=== PATIENT | female | born 1955 | race Caucasian/White ===

== ENCOUNTER 2016-07-27 23:10 | Emergency (ER) | payer OTHER ==
[2016-07-27 23:37] VITALS: BP 141/70
[2016-07-27] MEDS ORDERED: ULTRAM PO ONE (23:49)
--- NOTE | 2016-07-27 23:54 | PROVIDER DOCUMENTATION ---
HPI-General Adult - General Chief Complaint: Extremity Pain Stated Complaint: CORN ON FOOT Time Seen by Provider: 07/27/16 23:43 Source: patient Allergies/Adverse Reactions: Patient Allergies Allergy/AdvReac Type Severity Reaction Status Date / Time No Known Allergies Allergy Verified 07/27/16 23:38 Home Medications: Home Medication List Medication Instructions Recorded Confirmed Last Taken Type Amitriptyline [Elavil] 100 mg PO DIRECTED 05/21/14 01/26/15 01/26/15 History Aspirin/Calcium Carbonate/Mag 81 mg PO DAILY 05/21/14 01/26/15 01/26/15 History [Aspirin Buffered 325 mg Tab] Azathioprine [Imuran] 50 mg PO HS 05/21/14 01/26/15 1 Day Ago History Clonazepam 1 mg PO TID 05/21/14 01/26/15 01/26/15 History Folic Acid 1 mg PO DAILY 05/21/14 01/26/15 01/26/15 History Prednisone 5 mg PO DAILY 05/21/14 01/26/15 01/26/15 History Tacrolimus [Prograf] 3 cap PO QAM 05/21/14 01/26/15 01/26/15 History Tacrolimus [Prograf] 3 cap PO QPM 05/21/14 01/26/15 1 Day Ago History Insulin Glargine,Hum.rec.anlog 10 unit SUBQ HS 05/22/14 01/26/15 01/26/15 History [Lantus Solostar] Amlodipine Besylate [Norvasc] 5 mg PO DAILY 07/02/14 01/26/15 01/26/15 History Calcium Carbonate/Vitamin D3 BID 07/02/14 01/26/15 01/26/15 History [Calcium + Vitamin D Tablet] Carvedilol [Coreg] 6.25 mg PO BID 07/02/14 01/26/15 01/26/15 History Insulin Aspart [Novolog Flexpen] SQ TID 07/02/14 01/26/15 01/26/15 History Magnesium Oxide [Magnesium] 400 mg pe PO BID 07/02/14 01/26/15 01/26/15 History Multivitamin [Multi Vitamin Daily] 07/02/14 01/26/15 01/26/15 History Omeprazole 20 mg PO DAILY 07/02/14 01/26/15 01/26/15 History Tramadol [Ultram] 50 mg PO Q8HR #12 tablet 07/27/16 Unknown Rx - History of Present Illness -Gen Adult Nature of Presenting Problems: Pt. is 60 yof that presents with c/o a corn on her right lateral foot. Pt. is unsure of how long it has been there because she was taking pain medications for some dental work and didn't realize it was there but when she stopped taking the pain medication the foot began to hurt. Pt. was seen at [facility] for the same. Location of Pain/Injury: reports: feet (Right). denies: head, face, mouth, neck , chest, upper extremity, hand(s), abdomen, back, pelvis, genitalia, lower extremity, upper body, lower body, generalized Pain Radiation: reports: no radiation Quality of Pain: reports: aching. denies: burning, cramping, dull, fullness, indigestion, pressure, sharp, stabbing, tearing, throbbing, tightness Severity: reports: moderate. denies: mild, severe Onset/Duration: reports: unsure, gradual Timing: reports: still present. denies: improving, gone now, resolved prior to arrival, intermittent, constant, changing over time, getting worse Context/Activities at Onset: reports: none. denies: recent emotional stress, recent physical stress, recent trauma history, possible bad food, cold exposure , out of country travel Modifying Factors: improves with: nothing Associated Symptoms: reports: trouble walking. denies: anxiety, arm pain, back/ neck pain, chest pain, constipation, cough, diaphoresis, diarrhea, dizziness, EENT symptoms, fatigue, fever/chills, genitourinary problems, headaches, heartburn, joint pain, loss of appetite, malaise, muscle aches, sinus congestion /drainage, nausea, rash, seizure, shortness of breath, sensory/motor loss, pain with inspiration, swelling/mass in abdomen, syncope, vomiting, weakness Similar Symptoms Previously?: Yes Recently seen or treated by another doctor?: Yes Review of Systems - Adult - REVIEW OF SYSTEMS - ADULT Constitutional: reports: see HPI. denies: chills, fever, fatique Eyes: reports: see HPI. denies: discharge, blurred vision, double vision Ears, Nose, Mouth & Throat: reports: see HPI. denies: ear pain, hearing loss, sinus problem, nose pain, loose teeth, mouth/dental pain, throat pain, throat swelling Cardiovascular: reports: see HPI. denies: chest pain, irregular heart rate, orthopnea, palpitations, syncope Respiratory: reports: see HPI. denies: chronic cough, cough, dyspnea on exertion, pleurisy, shortness of breath, wheezing Gastrointestinal: reports: see HPI. denies: abdominal pain, hematemesis, difficulty swallowing, frequent heartburn, nausea, vomiting Genitourinary: reports: see HPI. denies: dysuria, discharge, frequent UTI's, hematuria, hesitency, urgency Musculoskeletal: reports: see HPI. denies: bone pain, back pain, joint pain, joint swelling, muscle aches, neck pain Integumentary: reports: see HPI, skin thickening (Hays on right foot). denies: hives, itching, rash, skin sores/ulcer, other Neurological: reports: see HPI. denies: ataxia, headache/migraines, numbness, seizure, tremors Psychiatric: reports: see HPI. denies: anxiety, depression, emotional problems , insomnia, panic attacks, suicidal thoughts Past History - Adult - PAST MEDICAL HISTORY-ADULT Review of Records: reports: Old Records Reviewed, Nursing Assessment Review, Medications Reviewed, Social history reviewed & non-contributory. Major Childhood Illnesses: reports: denies history Cardiovascular: reports: cardiac disease, HTN, hyperlipidemia Respiratory: reports: other (Bilateral lung transplant ) Endocrine/Immune: reports: Diabetes, thyroid disorder Other Conditions: reports: denies history - PRIOR SURGERIES/PROCEDURES Surgical/Procedure History: reports: hysterectomy, other (double lung transplant ) - IMMUNIZATION STATUS Childhood Immunizations: See Nurse Assessment Flu Vaccine: See Nurse Assessment - FAMILY HISTORY Family History: reviewed, not pertinent - SOCIAL HISTORY Smoking: quit greater than 1 year, cigarettes Physical Exam-General - PHYSICAL EXAM-ADULT Initial Vital Signs Reviewed: Yes - CONSTITUTIONAL General Appearance: alert, mild distress, thin. negative: anxious, lethargic, slow to respond, obtunded, combative - EYES Eyes: PERRL/EOMI, pink conjunctivae. negative: scleral icterus, subconjunctival hemorrhage - HEAD, EARS, NOSE, MOUTH & THROAT HENMT: normocephalic/atraumatic, moist mucous membranes, normal ENT inspection. negative: angioedema, frontal tenderness, maxillary tenderness - NECK Neck: non-tender, full range of motion, supple, normal inspection. negative: lymphadenopathy, trachial deviation, thyromegaly - RESPIRATORY Respiratory: lungs clear, normal breath sounds. negative: crackles, rales, rhonchi, stridor, wheezing - CARDIOVASCULAR Cardiovascular: normal peripheral pulses, regular rate, rhythm, no edema, no JVD , no murmur. negative: extra beats, friction rub, irregularly irregular - CHEST (BREASTS) Chest/Breast: deferred - GASTROINTESTINAL (ABDOMEN) Abdominal Exam: normal bowel sounds, non tender, soft. negative: distended, guarding, rigid, rebound, tenderness, hernia, mass - GENITOURINARY Female Genitalia/Pelvic Exam: deferred Rectal Exam: deferred Hemoccult Exam: deferred - LYMPHATIC Lymphatic: no adenopathy. negative: axilla node tender, cervical node tenderness - MUSCULOSKELETAL Back Exam: normal inspection, no CVA tenderness, no vertebral tenderness. negative: ecchymosis, swelling, vertebral tenderness Extremity: normal range of motion, non-tender, normal gait, normal inspection. negative: deformity, erythema, inflammation, swelling, tenderness Peripheral Pulses: radial (R): 2+, radial (L): 2+ - SKIN Integumentary: normal color, normal turgor, warm/dry, tenderness (Right lateral foot). negative: cyanosis, diaphoresis, ecchymosis, erythema, jaundice, mottled , pallor, petechiae, purpura, rash, swelling - NEUROLOGIC Neurologic: grossly normal, no motor/sensory deficits. negative: aphasia, facial droop, focal weakness, motor weakness, sensory deficit - PSYCHIATRIC Psych/Mental Status: normal mood/affect, normal thought content, normal thought process, oriented x 3. negative: anxious, paranoid, tearful Progress - PLAN OF CARE/RESULTS Progress/Plan/Lab Results: Discussed plan of care with patient. Patient agrees with plan and verbalizes understanding. Vital Signs Temp Pulse Resp BP Pulse Ox 07/27/16 23:32 97.2 F L 85 20 141/70 98 No Known Allergies Allergy (Verified 07/27/16 23:38) Amitriptyline [Elavil] 100 mg PO DIRECTED 05/21/14 Aspirin/Calcium Carbonate/Mag [Aspirin Buffered 325 mg Tab] 81 mg PO DAILY 05/21 Azathioprine [Imuran] 50 mg PO HS 05/21/14 Clonazepam 1 mg PO TID 05/21/14 Folic Acid 1 mg PO DAILY 05/21/14 Prednisone 5 mg PO DAILY 05/21/14 Tacrolimus [Prograf] 3 cap PO QAM 05/21/14 Tacrolimus [Prograf] 3 cap PO QPM 05/21/14 Insulin Glargine,Hum.rec.anlog [Lantus Solostar] 10 unit SUBQ HS 05/22/14 Amlodipine Besylate [Norvasc] 5 mg PO DAILY 07/02/14 Calcium Carbonate/Vitamin D3 [Calcium + Vitamin D Tablet] BID 07/02/14 Carvedilol [Coreg] 6.25 mg PO BID 07/02/14 Insulin Aspart [Novolog Flexpen] SQ TID 07/02/14 Magnesium Oxide [Magnesium] 400 mg pe PO BID 07/02/14 Multivitamin [Multi Vitamin Daily] 07/02/14 Omeprazole 20 mg PO DAILY 07/02/14 Orders Category Date Time Status Wound Care DIRECTED Care 07/27/16 23:49 Active Tramadol [Ultram] Med 07/27/16 23:49 Discontinued 50 mg PO NOW ONE Departure - Departure Time of Disposition Order: 23:54 DIAGNOSIS: Hays or callus Disposition: HOME 01 Certified Medical Emergency: Emergent Condition: Stable Additional Instructions: Follow up with primary care physician Follow up with registered midwife Take medications as directed Get some mole skin at any pharmacy to put on corn Return to ED for any concerns or worsening of symptoms ED Follow Up Instructions: You have been treated by a care provider in the Emergency Department. These instructions are being provided to you so you can have an understanding of how to care for yourself upon discharge. Upon discharge from the Emergency Department, you are responsible for making arrangements for follow-up care by a physician of your choice. Take all prescribed medications as directed. Return to the Emergency Department immediately for any new or worsening symptoms. You may call the Physician Referral phone number at [phone] to obtain a list of Physicians who are taking new patients. Prescriptions: Tramadol [Ultram] 50 mg PO Q8HR #12 tablet Attestation - Physician/ JOE Attestation Patient care was provided by Advanced Practice Provider:: Yes Advanced Practice Provider:: Arleth Hagen Advanced Practice Provider documentation review:: The Mid-level provider documentation, treatment plan and medical decision making was reviewed by the physician who agrees with all treatment and medical decision making by the MLP.
== END 2016-07-28 00:01 | disposition home or self-care (01) ==
LOC: P.ED 23:10
DX: L84 Corns and callosities (principal); M79.671 Pain in right foot; R26.2 Difficulty in walking, not elsewhere classified; R23.4 Changes in skin texture; I10 Essential (primary) hypertension; E78.5 Hyperlipidemia, unspecified; E11.9 Type 2 diabetes mellitus without complications; Z79.4 Long term (current) use of insulin; Z79.899 Other long term (current) drug therapy; Z94.2 Lung transplant status; Z87.891 Personal history of nicotine dependence
CPT/HCPCS: 99282